=== PATIENT | female | born 1970 ===

== ENCOUNTER → 2018-04-20 21:32 | Outpatient (REF) | payer OTHER, SELFPAY ==
[2018-04-20 22:32] LABS: Creatinine Urine Random 29.8 mg/dL
[2018-04-20 22:41] LABS: Microalbumi Creatinin Ratio Ur 20.1 ug/mg CR (<30); Microalbumin Urine Random < 0.6 mg/dL (0-1.6)
[2018-04-21 00:54] LABS: Hemoglobin A1C% w Est Avg Glu 5.4 % (4.0-6.0)
[2018-04-22 15:47] LABS: Estradiol < 15 pg/mL
[2018-04-22 18:10] LABS: Progesterone < 0.5 ng/mL
[2018-04-22 19:09] LABS: Sex Hormone Binding Globulin 111 nmol/L (17-124)
[2018-04-23 15:05] LABS: Anti Thyroglobulin Antibody < 1 IU/mL (< 2); Thyroid Peroxidase Antibodies < 1 IU/mL (< 9)
[2018-04-26 15:51] LABS: Testosterone Free 0.7 pg/mL (0.1-6.4); Testosterone Total 17 ng/dL (2-45)
== END ==
LOC: LAB 21:32
PROVIDERS: Visit Provider Naturopath
DX: E28.319 Asymptomatic premature menopause (principal); R94.4 Abnormal results of kidney function studies
CPT/HCPCS: 36415; 82043; 82570; 82670; 83001; 83002; 83036; 84144; 84270; 84402; 84403; 86376; 86800